=== PATIENT | male | born 1940 | race Caucasian/White ===

== ENCOUNTER 2020-08-03 11:09 | Emergency (ER) | payer MEDICARE ==
[~2020-08-03] VITALS: Ht 167.6 cm; Wt 75.5 kg
[2020-08-03 11:13] VITALS: BP 140/62
[2020-08-03] MEDS ORDERED: MYCO500V5 PO (11:51)
[2020-08-03] MEDS ORDERED: OMEP20TA62 PO (11:51)
[2020-08-03] MEDS ORDERED: TAMS-11 PO (11:51)
--- NOTE | 2020-08-03 11:58 | NUR ---
PT AMBULATORY TO ROOM FROM LOBBY. PT WITH C/O COUGH, HEAVY CHEST X 1 WEEK. + COVID TEST 08/02 AT [facility]. DR CAVAZOS AT BEDSIDE. PT ASSESSMENT, POC DISCUSSED AND QUESTIONS ANSWERED.
--- NOTE | 2020-08-03 12:21 | NUR ---
DR CAVAZOS DISCUSSED D/C INSTRUCTIONS AND ANSWERED QUESTIONS. PT LEFT PRIOR TO RECIEVING PRINTED INSTRUCTIONS FROM RN.
== END 2020-08-03 12:22 | disposition home or self-care (01) ==
LOC: ED 12:19
DX: U07.1 COVID-19 (principal); J06.9 Acute upper respiratory infection, unspecified; R05 Cough; R07.89 Other chest pain; R94.31 Abnormal electrocardiogram [ECG] [EKG]
CPT/HCPCS: 93005; 99283